=== PATIENT | female | born 1955 | race Caucasian/White ===

== ENCOUNTER 2018-10-16 14:20 | Emergency (ER) | payer SELFPAY ==
[~2018-10-16] VITALS: Ht 175.3 cm; Wt 188.3 kg
[2018-10-16 16:02] LABS: EOSINOPHILS % 0.8 % (0.0-5.0); HEMATOCRIT. 38.9 % (36.0-48.0); HEMOGLOBIN. 12.1 g/dL (12.0-16.0); LYMPHOCYTES % 42.5 % (20.0-50.0); MEAN CORPUSCULAR HEMOGLOBIN 22.6 pg (28.0-32.0); MEAN CORPUSCULAR VOLUME 72.3 fL (81.0-99.0); MEAN PLATELET VOLUME 9.2 fl (7.4-10.4); MONOCYTES % 7.7 % (2.0-8.0); PLATELET 185 x1000/uL (130-400); RED BLOOD CELL COUNT 5.38 mill/uL (4.2-5.4); RED CELL DISTRIBUTION WIDTH 13.8 % (11.6-14.6)
[2018-10-16 16:03] LABS: CHLORIDE 106 mEq/L (98-107)
[2018-10-16 16:12] LABS: T4 FREE 1.04 ng/dL (0.76-1.46)
[2018-10-16 16:48] LABS: CLARITY URINE CLEAR (CLEAR); COLOR URINE YELLOW (YELLOW); KETONES URINE NEGATIVE (NEGATIVE); LEUKOCYTE ESTERASE URINE 1+ (NEGATIVE); NITRITE URINE NEGATIVE (NEGATIVE); OCCULT BLOOD URINE NEGATIVE (NEGATIVE); PROTEIN URINE NEGATIVE (NEGATIVE)
[2018-10-16] MEDS ORDERED: POTASSIUM CHLORIDE 20MEQ TABLET SR PO NR (17:00)
[2018-10-16 17:51] VITALS: BP 191/93
== END 2018-10-16 17:51 | disposition home or self-care (01) ==
LOC: ER 14:20
DX: E04.9 Nontoxic goiter, unspecified (principal); I10 Essential (primary) hypertension
CPT/HCPCS: 36415; 71045; 81003; 83880; 84439; 84443; 84484; 93005; 99284